=== PATIENT | male | born 1960 | race African-American/Black ===

== ENCOUNTER 2021-05-19 11:13 | Inpatient (IN) ==
[2021-05-19] MEDS ORDERED: NS 1,000 ML IV 1,000 ML IV ONE (13:31)
--- NOTE | 2021-05-19 13:31 | DR.SOBA ---
HPI Time Seen Time Seen by Provider: 05/19/21 13:29 Primary Care Physician Primary Care Physician: MILLY GLOVER HPI Comment HPI Comment: PATIENT WITH A HISTORY OF PANCREATIC CARCINOMA, POST WHIPPLE PROCEDURE, COMPLAINS OF DYSPNEA WORSE UPON EXERTION ASSOCIATED WITH A DRY COUGH. HAS LEFT POSTERIOR BACK PAIN. DENIES FEVER AND CHILLS. Complaints Chief Complaint Doctors Comments: DYSPNEA AND COUGH X 3 DAYS Chief Complaint:: PT TO ER WITH C/O SOB, AND < BACK ,BR PT DENIES CCC, FEVER ,,BR COVID-19 Coronavirus risk:travel/contact w/high risk person: Yes Has patient experienced Coronavirus symptoms: Yes Reviewed Nurses Notes Reviewed: Yes Source History Provided: Patient Mode of Arrival Mode of Arrival: Wheelchair Timing Onset of Chief Complaint: 05/16/21 PMH PMH Past Medical History: Yes Past Medical History: Diabetes Past Medical History Comment: PACREATIC CANCER 5 YEARS AGO Past Surgical History: Yes Past Surgical History Comment: KNEE SURGERY Family History History of Family Medical Conditions: No Social History Does patient currently use any type of tobacco product: No Have you used tobacco products in the last 12 months: No Does any household member use tobacco: No Alcohol Use: None Do you use any recreational Drugs:: No Lives With: Family Lives Where: Home Travel Risk Coronavirus risk:travel/contact w/high risk person: No Has patient experienced Coronavirus symptoms: No Infectious screening In the last 2 months have you had wt loss of >10#?: NO Have you had fever, night sweats or hemotysis?: No Have you traveled outside the country in the last 6 months?: No Isolation: Standard ROS Review of Systems Constitutional: See HPI, Chills, Fever and Malaise Eyes: No Symptoms Reported ENTM: No Symptoms Reported Respiratoy: See HPI Cardiovascular: No Symptoms Reported Gastrointestinal/Abdominal: No Symptoms Reported Genitourinary: No Symptoms Reported Neurological: No Symptoms Reported Musculoskeletal: No Symptoms Reported Integumentary: No Symptoms Reported Hematologic/Lymphatic: No Symptoms Reported Endocrine: No Symptoms Reported Psychiatric: No Symptoms Reported All Other Systems: Reviewed and Negative PE Vital Signs Vitals: Temperature 97.2 F Pulse Rate 128 Respiratory Rate 20 Blood Pressure 128/52 O2 Sat by Pulse Oximetry 98 General Limitations: No Limitations General Appearance: Alert, In No Apparent Distress and Appears Intoxicated Eyes Eye exam: Normal Appearance ENT ENT Exam: Normal Exam and Normal Oropharynx Neck Neck Exam: Normal Inspection, Full ROM and Trachea Midline Respiratory Respiratory Exam: Left: Decreased Breath Sounds (1/3 [address] UP POSTERIORLY) Cardiovascular Cardiovascular Exam: Tachycardia Abdominal Exam Abdominal Exam: Normal Inspection, Normal Bowel Sounds and Soft Extremities Extremities Exam: Normal Inspection and Full ROM Neurologic Neurological Exam: Alert and Oriented X3 MDM Differential Diagnosis Differential Diagnosis: Pneumonia, Respiratory Insufficiency and Other Differential Diagnosis Comment:: PNEUMONIA, COVID COURSE Treatment Treatment: IV NORMAL SALINE 500ML/HR, AFTER BLOOD CULTURES OBTAINED LEVAQUIN 500MG IVPB, SOLUMEDROL 125MG IV, LOVENOX 60MG SUBQ Consultation Call Returned: 16:50 Consultation Comments: DISCUSSED WITH DR LICONA FOR OBSERVATION ROR Labs Reviewed Laboratory Results Reviewed?: Yes Result Diagrams: 05/19/21 14:28 05/19/21 14:28 Laboratory: WBC 15.0 X10^3/uL (3.6-10.0) H 05/19/21 14:28 RBC 3.40 X10^6/uL (4.7-6.0) L 05/19/21 14:28 Hgb 10.0 g/dL (13.5-18.0) L 05/19/21 14:28 Hct 30.2 % (42.0-54.0) L 05/19/21 14:28 MCV 88.8 fL (80.0-100.0) 05/19/21 14:28 MCH 29.3 pg (27.0-34.0) 05/19/21 14:28 MCHC 33.0 g/dL (33.0-35.0) 05/19/21 14:28 RDW 15.4 % (11.6-16.5) 05/19/21 14:28 Plt Count 328 X10^3/uL (150.0-450.0) 05/19/21 14:28 Plt Count Comment Adequate (ADEQUATE) 05/19/21 14:28 MPV 7.2 fL (7.4-11.0) L 05/19/21 14:28 Neut % (Auto) 91.0 % (42.0-75.0) H 05/19/21 14:28 Lymph % (Auto) 6.4 % (21.0-51.0) L 05/19/21 14:28 Menard % (Auto) 2.1 % (0.0-13.0) 05/19/21 14: Eos % (Auto) 0.3 % (0.9-2.9) L 05/19/21 14: Baso % (Auto) 0.2 % (0.2-1.0) 05/19/21 14: Neut # (Auto) 13.7 x10^3/uL (2.2-4.8) H 05/19/21 14: Lymph # (Auto) 1.0 X10^3/uL (1.3-2.9) L 05/19/21 14: Menard # (Auto) 0.3 x10^3/uL (0.3-0.8) 05/19/21 14: Eos # (Auto) 0.0 x10^3/uL (0.0-0.2) 05/19/21 14: Baso # (Auto) 0.0 X10^3/uL (0.0-0.1) 05/19/21 14: Absolute Nucleated RBC 0.1 /100WBC 05/19/21 14: Total Counted 100 05/19/21 14: Neutrophils % (Manual) 87 % (39-76) H 05/19/21 14: Band Neutrophils % 4 % (0-10) 05/19/21 14: Lymphocytes % (Manual) 5 % (13-43) L 05/19/21 14: Monocytes % (Manual) 4 % (4-9) 05/19/21 14:28 Plt Morphology Comment Normal (NORMAL) 05/19/21 14: RBC Morphology Abnormal (NORMAL) 05/19/21 14:28 Target Cells Slight A 05/19/21 14:28 Tear Drop Cells Slight 05/19/21 14:28 [place] Cells Slight A 05/19/21 14:28 PT 17.2 SECONDS (11.8-14.3) 05/19/21 14: INR Target Range - 05/19/21 14: INR 1.48 (0.8-1.3) H 05/19/21 14:28 D-Dimer > 20.00 ug/ml (0.0-0.57) H* 05/19/21 14:28 Sample Site Rr 05/19/21 13:55 ABG pH 7.480 (7.35-7.45) H 05/19/21 13:55 ABG pCO2 23.0 mmHg (35.0-45.0) L 05/19/21 13:55 ABG pO2 91.0 mmHg (80.0-100.0) 05/19/21 13:55 ABG HCO3 17.1 mmol/L (22-26) L* 05/19/21 13:55 ABG O2 Saturation 98.0 % (90-100) 05/19/21 13:55 ABG Base Excess -4.7 mmol/L (-2.0-2.0) L 05/19/21 13:55 Pipo Test Pos 05/19/21 13:55 A-a Gradient 30.0 mmHg 05/19/21 13:55 FiO2 21.0 05/19/21 13:55 Blood Gas Comments Cheo well cb 05/19/21 13:55 Sodium 136 mmol/L (136-145) 05/19/21 14:28 Corrected Sodium TNP 05/19/21 14:28 Potassium 4.4 mmol/L (3.5-5.1) 05/19/21 14:28 Chloride 101 mmol/L (98-107) 05/19/21 14:28 Carbon Dioxide 20.6 mmol/L (21-32) L 05/19/21 14:28 BUN 60 mg/dL (7-18) H 05/19/21 14:28 Creatinine 1.63 mg/dL (0.70-1.30) H 05/19/21 14:28 Est GFR (MDRD) Af Amer 56 (>60) L 05/19/21 14:28 Est GFR (MDRD) Non-Af 46 (>60) L 05/19/21 14:28 Glucose 88 mg/dL (65-99) 05/19/21 14:28 Lactic Acid 4.4 mmol/L (0.4-2.0) H 05/19/21 14:28 Calcium 8.5 mg/dL (8.5-10.1) 05/19/21 14:28 Corrected Calcium 10.1 mg/dL (8.5-10.1) 05/19/21 14:28 Total Bilirubin 0.80 mg/dL (0.2-1.0) 05/19/21 14:28 AST 25 Units/L (15-37) 05/19/21 14:28 ALT 9 Units/L (12-78) L 05/19/21 14:28 Alkaline Phosphatase 271 Units/L (46-116) H 05/19/21 14:28 Troponin I High Sens 21.3 ng/L (4.0-60.0) 05/19/21 14:28 Total Protein 7.8 g/dL (6.4-8.2) 05/19/21 14:28 Albumin 2.0 g/dL (3.4-5.0) L 05/19/21 14:28 Globulin 5.8 g/dL (2.5-4.5) H 05/19/21 14:28 Albumin/Globulin Ratio 0.3 Ratio (1.1-2.1) L 05/19/21 14:28 SARS CoV-2 RNA Rapid BIJAN Negative (NEGATIVE) 05/19/21 14:30 XRAY X-ray Results: CHEST XRAY- PATCHY LOBAR INFILTRATES EKG Rate: 124 Rhythm: NSR ST: Nonsp Opioid Opioid Risk Tool Age (Erickson box if 16-45): No History of Preadolescent Sexual Abuse: No Total: 0 Total Score Risk Category: Low Risk Copyright: Tomi WELLINGTON predicting aberrant behaviors Diagnosis Discharge Problem: Pneumonia, Acute dyspnea
[2021-05-19] MEDS ORDERED: LEVAQUIN PREMIX IV 500 MG 500 MG/100 ML BAG IV ONE (13:38)
[2021-05-19] MEDS ORDERED: NS 500 ML IV 500 ML IV ONE (13:38)
[2021-05-19 14:00] LABS: ABG ALLEN TEST POS; ABG BASE EXCESS -4.7 mmol/L (-2.0-2.0); ABG HCO3 17.1 mmol/L (22-26)
[2021-05-19 14:40] LABS: BASOPHILS % (AUTO) 0.2 % (0.2-1.0); EOSINOPHILS % (AUTO) 0.3 % (0.9-2.9); HEMATOCRIT 30.2 % (42.0-54.0); LYMPHOCYTES % (AUTO) 6.4 % (21.0-51.0); MEAN CORPUSCULAR HEMOGLOBIN 29.3 pg (27.0-34.0); MEAN CORPUSCULAR VOLUME 88.8 fL (80.0-100.0); MEAN PLATELET VOLUME 7.2 fL (7.4-11.0); MONOCYTES # (AUTO) 0.3 x10^3/uL (0.3-0.8); MONOCYTES % (AUTO) 2.1 % (0.0-13.0); NEUTROPHILS # (AUTO) 13.7 x10^3/uL (2.2-4.8); RED CELL DISTRIBUTION WIDTH 15.4 % (11.6-16.5)
[2021-05-19] MEDS: LEVAQUIN PREMIX IV 500 MG 500 MG/100 ML BAG IV SCH (14:47)
[2021-05-19 14:58] LABS: LACTIC ACID 4.4 mmol/L (0.4-2.0)
[2021-05-19 15:02] LABS: ALANINE AMINOTRANSFERASE 9 Units/L (12-78); ALKALINE PHOSPHATASE 271 Units/L (46-116); ASPARTATE AMINO TRANSFERASE 25 Units/L (15-37); BLOOD UREA NITROGEN 60 mg/dL (7-18); CALCIUM 8.5 mg/dL (8.5-10.1); CARBON DIOXIDE 20.6 mmol/L (21-32); CHLORIDE 101 mmol/L (98-107); COR CA(FOR HYPOALB) 10.1 mg/dL (8.5-10.1); CREATININE 1.63 mg/dL (0.70-1.30); SODIUM 136 mmol/L (136-145); TOTAL PROTEIN 7.8 g/dL (6.4-8.2); eGFR NON BLACK RACES 46 (>60)
[2021-05-19] MEDS ORDERED: SOLU-Medrol 125 MG VIAL IVP ONE (15:06)
--- NOTE | 2021-05-19 15:51 | RAD ---
HISTORYSOB, COUGH ORTHO, HX PACREATIC CASTUDYCHEST, 1 VIEWCOMPARISONNone available.FINDINGSThe trachea is midline. Shallow respiration extensor weights the cardiac size. There is patchy multi lobar pulmonary opacities with some sparing in the apices. The appearance is worrisome for infection, possibly viral pneumonia. There is gaseous distention of the stomach suggesting difficulty breathing with air swallowing. The differential would include gastric ileus. The bony thorax is unremarkable.IMPRESSIONPatchy multi lobar pulmonary infiltrates worrisome for infection, possibly viral pneumonia. 2. Nonspecific gas is distension of the stomach. Question air swallowing from dyspnea versus gastric ileus..Electronically signed by: Dionte Clancy (May 19, 2021 15:50:17)
[2021-05-19 16:16] LABS: BAND NEUTROPHILS % 4 % (0-10); BURR CELLS SLIGHT; PLATELET MORPHOLOGY COMMENT NORMAL (NORMAL); TARGET CELLS SLIGHT; TEAR DROP CELLS SLIGHT
[2021-05-19] MEDS ORDERED: SOLU-Medrol 125 MG VIAL ONE (17:28)
[2021-05-19] MEDS ORDERED: LOVENOX INJ 60 MG SYR SC ONE ×2 (17:47→19:13)
[2021-05-19] MEDS ORDERED: SNACK - Diabetic Appropriate PO SCH (22:04)
[2021-05-19] MEDS ORDERED: TYLENOL 325 MG TAB PO PRN (22:04)
[2021-05-19] MEDS: PULMICORT NEB TX 0.5 MG NEB SCH (22:20)
[2021-05-19] MEDS: BROVANA IN SCH (22:20)
[2021-05-19 22:43] VITALS: BMI 28.2
[2021-05-20] MEDS ORDERED: NS 1,000 ML IV 1,000 ML IV ONE ×2 (02:25→19:47)
[2021-05-20] MEDS ORDERED: LOPRESSOR INJ 5 MG AMP IVP PRN (02:25)
[2021-05-20] MEDS ORDERED: NS 500 ML IV 500 ML IV ONE ×2 (02:30→02:39)
[2021-05-20] MEDS: NS 1,000 ML IV 1,000 ML IV SCH ×3 (03:40→15:43)
[2021-05-20 06:10] LABS: BASOPHILS % (AUTO) 0.1 % (0.2-1.0); HEMATOCRIT 24.6 % (42.0-54.0); HEMOGLOBIN 8.2 g/dL (13.5-18.0); LYMPHOCYTES # (AUTO) 0.8 X10^3/uL (1.3-2.9); LYMPHOCYTES % (AUTO) 6.2 % (21.0-51.0); MEAN CORPUSCULAR HEMOGLOBIN 29.2 pg (27.0-34.0); MEAN CORPUSCULAR HGB CONC 33.2 g/dL (33.0-35.0); MEAN CORPUSCULAR VOLUME 87.9 fL (80.0-100.0); MEAN PLATELET VOLUME 7.2 fL (7.4-11.0); MONOCYTES # (AUTO) 0.2 x10^3/uL (0.3-0.8); MONOCYTES % (AUTO) 1.9 % (0.0-13.0); NEUTROPHILS # (AUTO) 11.6 x10^3/uL (2.2-4.8); NEUTROPHILS % (AUTO) 91.8 % (42.0-75.0); RED CELL DISTRIBUTION WIDTH 15.4 % (11.6-16.5); WHITE BLOOD COUNT 12.6 X10^3/uL (3.6-10.0)
[2021-05-20 06:36] LABS: ALBUMIN 1.6 g/dL (3.4-5.0); CALCIUM 7.9 mg/dL (8.5-10.1); CARBON DIOXIDE 15.8 mmol/L (21-32); COR CA(FOR HYPOALB) 9.8 mg/dL (8.5-10.1); CREATININE 1.55 mg/dL (0.70-1.30); TOTAL PROTEIN 6.7 g/dL (6.4-8.2)
[2021-05-20 07:34] LABS: BAND NEUTROPHILS % 2 % (0-10); PLATELET MORPHOLOGY COMMENT NORMAL (NORMAL)
[2021-05-20 07:35] LABS: BURR CELLS SLIGHT; TARGET CELLS SLIGHT; TEAR DROP CELLS SLIGHT
[2021-05-20] MEDS: PULMICORT NEB TX 0.5 MG NEB SCH ×2 (08:00→20:15)
[2021-05-20] MEDS: BROVANA IN SCH ×2 (08:00→20:15)
[2021-05-20] MEDS: LEVAQUIN PREMIX IV 500 MG 500 MG/100 ML BAG IV SCH (08:44)
[2021-05-20] MEDS: GLUCOPHAGE XR 24-HR PO SCH (08:45)
[2021-05-20] MEDS: GLUCOTROL PO SCH (08:45)
[2021-05-20] MEDS: COZAAR PO SCH (08:45)
[2021-05-20] MEDS ORDERED: LOVENOX INJ 60 MG SYR SC SCH (09:00)
[2021-05-20] MEDS ORDERED: LEVAQUIN PREMIX IV 500 MG 500 MG/100 ML BAG IV SCH (09:00)
[2021-05-20] MEDS ORDERED: NovoLIN R (or HumuLIN R) SUBCUT PRN (11:09)
[2021-05-20] MEDS: ZITHROMAX INJ 500 MG VIAL 500 MG in NS 250 ML IV 250 ML IV SCH (12:21)
--- NOTE | 2021-05-20 13:23 | VAS ---
HISTORYBilateral lower extremity swelling.STUDYLOWER EXT VENOUS, BILATERALCOMPARISONNone.TECHNIQUEMultipl e mckeon scale and color flow Doppler images of the deep venous system were obtained of the right and left lower extremity.FINDINGSThe deep venous system of the right and left lower extremities were evaluated from the level of the common femoral vein through the popliteal vein. There is echogenic material filling the lumen of the noncompressible superficial femoral vein and popliteal vein of the deep venous system on the right without vascular flow in these vessels on Doppler interrogation compatible with occluding DVT. Similar findings are present within the incompletely compressible popliteal vein on the left compatible with partially occluding thrombus of the left popliteal vein.IMPRESSION1. Occluding DVT of the right lower extremity.2. Partially occluding DVT of the left lower extremity.Electronically signed by: MARK CHIU (May 20, 2021 13:22:54)
[2021-05-20] MEDS: ZOFRAN INJ 4 MG VIAL IVP PRN (17:35)
[2021-05-20] MEDS: HEPARIN SODIUM IN D5W 25,000 UNITS/500 ML BAG IV PRN (20:24)
[2021-05-20] MEDS: SNACK - Diabetic Appropriate PO SCH (20:46)
--- NOTE | 2021-05-21 00:59 | DR.H&P ---
H&P - History & Physical for Day of: H&P Date: 05/19/21 - Chief Complaint Chief Complaint: dyspnea - History of Present Illness History of Present Illness: Patient is a 61 year old male who was admitted due to blateral pneumonia, COVID negative. Patient reprots SOB which progressively became worse. Patient reports mild fever and chills. Patient has a PMH of pancreatic cancer and underwent the whipple procedure approximately 5 years ago. Report he has been in remission since. Also has a history of polio affecting left lower ext. PMH pancreatic cancer, polio, DM - Past Medical History Past Medical History: Diabetes Additional Medical History: pancreatic cancer, polio, whipple procedure - Past Surgical History Surgical History: Abdominal Surgery (whipple procedure) - Family History Family Medical History: Diabetes Mellitus, Cancer, Hypertension - Social History Does patient currently use any type of tobacco product: No Have you used tobacco products in the last 12 months: No Does any household member use tobacco: No Alcohol Use: None Drug Use: None - Medications Home Medications: No Known Drug Allergies Allergy (Verified 05/19/21 11:19) CONTINUE taking the following medications azithromycin 500 mg PO DAILY 05/19/21 [History] glipizide 5 mg PO DAILY 05/19/21 [History] losartan 50 mg PO DAILY 05/19/21 [History] metformin 500 mg PO DAILY 05/19/21 [History] - Review of Systems Constitutional: See HPI Eyes: See HPI ENT: See HPI Respiratory: See HPI Cardiovascular: See HPI Gastrointestinal: See HPI Genitourinary: See HPI Musculoskeletal: See HPI Skin: See HPI Neurological: See HPI - Physical Exam Vital Signs: Temperature 98.3 F Pulse Rate [Left Brachial] 126 Pulse Rate [Bilateral Radial] 111 Pulse Rate 122 Respiratory Rate 20 Blood Pressure [Left Arm] 111/70 Blood Pressure [Right Arm] 106/69 Blood Pressure 111/62 O2 Sat by Pulse Oximetry 97 Oriented: Normal, Time, Person, Place Eyes: Normal Ear: Normal Nose: Normal Throat: Normal Respiratory: Rhonchi Throughout Cardiovascular: Tachycardia : Normal Auscultation: Bowel Sounds: Normal Palpation: Normal Tenderness: Normal Skin: Normal Musculoskeletal: Left, Leg, Motor Deficit, Instability (Left lower ext weaker jordon right and contracted due to history of polio) Psychiatric: Normal Mood Description: Calm Affect: Normal Speech Pattern: Clear, Appropriate - Assessment/Plan (1) Pneumonia Status: Acute Plan: IV abx, steroids. Trend ABG, CXR, and labs (2) Acute dyspnea Status: Acute (3) Elevated d-dimer Status: Acute Plan: Unable to perform CTA due to renal function, VQ scan pending (4) History of poliomyelitis Status: Chronic (5) History of pancreatic cancer Status: Chronic (6) Diabetes Status: Chronic (7) ADE (acute kidney injury) Status: Acute Plan: fluids. trend - Allergies Allergies/Adverse Reactions: Allergies Allergy/AdvReac Type Severity Reaction Status Date / Time No Known Drug Allergies Allergy Verified 05/19/21 11:19
--- NOTE | 2021-05-21 01:13 | PCM.PROG ---
Progress Note - Progress Note for Day of Date of Exam: 05/20/21 - Subjective Subjective: Patient reports improvement in symptoms. NM lung scan pending. US bilateral lower ext positive for bilateral lower ext DVT; Heparing started. No other concerns at present. - Past Medical Family Social History Past Med/Fam/Surg Hx: No changes since H&P Allergies: Allergies No Known Drug Allergies Allergy (Verified 05/19/21 11:19) - Review of Systems ROS: No change since H&P - Vital Signs and I&O's Vital Signs: Temperature 98.3 F Pulse Rate [Left Brachial] 126 Pulse Rate [Bilateral Radial] 111 Pulse Rate 122 Respiratory Rate 20 Blood Pressure [Left Arm] 111/70 Blood Pressure [Right Arm] 106/69 Blood Pressure 111/62 O2 Sat by Pulse Oximetry 97 Intake and Output: Intake & Output 05/18/21 05/19/21 05/20/21 05/21/21 23:59 23:59 23:59 23:59 Intake Total 710 / 710 3237 / 3237 Output Total 650 / 650 Balance 710 / 710 2587 / 2587 - Physical Exam Oriented: Normal, Time, Person, Place Eyes: Normal Ear: Normal Nose: Normal Throat: Normal Respiratory: Generalized, Diminished, Rhonchi Cardiovascular: Tachycardia : Normal Auscultation: Bowel Sounds: Normal, Absent Tenderness: Normal Skin: Normal Musculoskeletal: Left, Leg, Motor Deficit, Instability (Left lower ext weaker jordon right and contracted due to history of polio) Psychiatric: Normal Mood Description: Calm Affect: Normal Speech Pattern: Clear, Appropriate - Laboratory and Diagnostics Result Diagrams: 05/20/21 05:45 05/20/21 05:45 Labs: Laboratory WBC 12.6 X10^3/uL (3.6-10.0) H 05/20/21 05:45 RBC 2.80 X10^6/uL (4.7-6.0) L 05/20/21 05:45 Hgb 8.2 g/dL (13.5-18.0) L 05/20/21 05:45 Hct 24.6 % (42.0-54.0) L 05/20/21 05:45 MCV 87.9 fL (80.0-100.0) 05/20/21 05:45 MCH 29.2 pg (27.0-34.0) 05/20/21 05:45 MCHC 33.2 g/dL (33.0-35.0) 05/20/21 05:45 RDW 15.4 % (11.6-16.5) 05/20/21 05:45 Plt Count 274 X10^3/uL (150.0-450.0) 05/20/21 05:45 Plt Count Comment Adequate (ADEQUATE) 05/20/21 05:45 MPV 7.2 fL (7.4-11.0) L 05/20/21 05:45 Neut % (Auto) 91.8 % (42.0-75.0) H 05/20/21 05:45 Lymph % (Auto) 6.2 % (21.0-51.0) L 05/20/21 05:45 [place] % (Auto) 1.9 % (0.0-13.0) 05/20/21 05:45 Eos % (Auto) 0.0 % (0.9-2.9) L 05/20/21 05:45 Baso % (Auto) 0.1 % (0.2-1.0) L 05/20/21 05:45 Neut # (Auto) 11.6 x10^3/uL (2.2-4.8) H 05/20/21 05:45 Lymph # (Auto) 0.8 X10^3/uL (1.3-2.9) L 05/20/21 05:45 [place] # (Auto) 0.2 x10^3/uL (0.3-0.8) L 05/20/21 05:45 Eos # (Auto) 0.0 x10^3/uL (0.0-0.2) 05/20/21 05:45 Baso # (Auto) 0.0 X10^3/uL (0.0-0.1) 05/20/21 05:45 Absolute Nucleated RBC 0.0 /100WBC 05/20/21 05:45 Total Counted 100 05/20/21 05:45 Neutrophils % (Manual) 92 % (39-76) H 05/20/21 05:45 Band Neutrophils % 2 % (0-10) 05/20/21 05:45 Lymphocytes % (Manual) 5 % (13-43) L 05/20/21 05:45 Monocytes % (Manual) 1 % (4-9) L 05/20/21 05:45 Plt Morphology Comment Normal (NORMAL) 05/20/21 05:45 RBC Morphology Abnormal (NORMAL) 05/20/21 05:45 Target Cells Slight A 05/20/21 05:45 Tear Drop Cells Slight 05/20/21 05:45 Josué Cells Slight A 05/20/21 05:45 PT 16.9 SECONDS (11.8-14.3) 05/20/21 20:17 INR Target Range - 05/20/21 20:17 INR 1.45 (0.8-1.3) H 05/20/21 20:17 APTT 56.2 SECONDS (22.9-36.5) H 05/20/21 20:17 PTT Comment - 05/20/21 20:17 D-Dimer > 20.00 ug/ml (0.0-0.57) H* 05/19/21 14:28 Sample Site Rr 05/19/21 13:55 ABG pH 7.480 (7.35-7.45) H 05/19/21 13:55 ABG pCO2 23.0 mmHg (35.0-45.0) L 05/19/21 13:55 ABG pO2 91.0 mmHg (80.0-100.0) 05/19/21 13:55 ABG HCO3 17.1 mmol/L (22-26) L* 05/19/21 13:55 ABG O2 Saturation 98.0 % (90-100) 05/19/21 13:55 ABG Base Excess -4.7 mmol/L (-2.0-2.0) L 05/19/21 13:55 Pipo Test Pos 05/19/21 13:55 A-a Gradient 30.0 mmHg 05/19/21 13:55 FiO2 21.0 05/19/21 13:55 Blood Gas Comments Cheo well cb 05/19/21 13:55 Sodium 135 mmol/L (136-145) L 05/20/21 05:45 Corrected Sodium 137 mmol/L (136-145) 05/20/21 05:45 Potassium 5.4 mmol/L (3.5-5.1) H 05/20/21 05:45 Chloride 102 mmol/L (98-107) 05/20/21 05:45 Carbon Dioxide 15.8 mmol/L (21-32) L 05/20/21 05:45 BUN 72 mg/dL (7-18) H 05/20/21 05:45 Creatinine 1.55 mg/dL (0.70-1.30) H 05/20/21 05:45 Est GFR (MDRD) Af Amer 59 (>60) 05/20/21 05:45 Est GFR (MDRD) Non-Af 49 (>60) L 05/20/21 05:45 Glucose 196 mg/dL (65-99) H 05/20/21 05:45 POC Glucose (mg/dL) 124 mg/dL (65-99) H 05/20/21 20:37 Lactic Acid 2.2 mmol/L (0.4-2.0) H 05/20/21 05:45 Calcium 7.9 mg/dL (8.5-10.1) L 05/20/21 05:45 Corrected Calcium 9.8 mg/dL (8.5-10.1) 05/20/21 05:45 Total Bilirubin 0.70 mg/dL (0.2-1.0) 05/20/21 05:45 AST 20 Units/L (15-37) 05/20/21 05:45 ALT 7 Units/L (12-78) L 05/20/21 05:45 Alkaline Phosphatase 228 Units/L (46-116) H 05/20/21 05:45 Troponin I High Sens 18.3 ng/L (4.0-60.0) 05/19/21 20:00 Total Protein 6.7 g/dL (6.4-8.2) 05/20/21 05:45 Albumin 1.6 g/dL (3.4-5.0) L 05/20/21 05:45 Globulin 5.1 g/dL (2.5-4.5) H 05/20/21 05:45 Albumin/Globulin Ratio 0.3 Ratio (1.1-2.1) L 05/20/21 05:45 SARS CoV-2 RNA Rapid BIJAN Negative (NEGATIVE) 05/19/21 14:30 - Plan (1) DVT of lower extremity, bilateral Status: Acute Plan: Heparin drip (2) Pneumonia Status: Acute Plan: IV abx, steroids. Trend ABG, CXR, and labs (3) Acute dyspnea Status: Acute (4) Elevated d-dimer Status: Acute Plan: Unable to perform CTA due to renal function, VQ scan pending (5) History of poliomyelitis Status: Chronic (6) History of pancreatic cancer Status: Chronic (7) Diabetes Status: Chronic (8) ADE (acute kidney injury) Status: Acute Plan: fluids. trend
[2021-05-21 03:03] LABS: HEMOGLOBIN 7.8 g/dL (13.5-18.0); LYMPHOCYTES # (AUTO) 0.8 X10^3/uL (1.3-2.9); MONOCYTES # (AUTO) 0.6 x10^3/uL (0.3-0.8); MONOCYTES % (AUTO) 4.4 % (0.0-13.0)
[2021-05-21 03:09] LABS: BASOPHILS % (AUTO) 0.2 % (0.2-1.0); HEMATOCRIT 23.6 % (42.0-54.0); LYMPHOCYTES % (AUTO) 6.5 % (21.0-51.0); MEAN CORPUSCULAR HGB CONC 33.1 g/dL (33.0-35.0); MEAN CORPUSCULAR VOLUME 87.8 fL (80.0-100.0); MEAN PLATELET VOLUME 6.9 fL (7.4-11.0); NEUTROPHILS # (AUTO) 11.7 x10^3/uL (2.2-4.8); NEUTROPHILS % (AUTO) 88.9 % (42.0-75.0); RED BLOOD COUNT 2.69 X10^6/uL (4.7-6.0); RED CELL DISTRIBUTION WIDTH 15.6 % (11.6-16.5); WHITE BLOOD COUNT 13.1 X10^3/uL (3.6-10.0)
[2021-05-21 03:13] LABS: ALANINE AMINOTRANSFERASE 10 Units/L (12-78); ALBUMIN 1.6 g/dL (3.4-5.0); ALKALINE PHOSPHATASE 210 Units/L (46-116); ASPARTATE AMINO TRANSFERASE 23 Units/L (15-37); BLOOD UREA NITROGEN 67 mg/dL (7-18); CALCIUM 8.1 mg/dL (8.5-10.1); CARBON DIOXIDE 17.5 mmol/L (21-32); CHLORIDE 107 mmol/L (98-107); COR NA(FOR HYPERGLY) 138 mmol/L (136-145); CREATININE 1.32 mg/dL (0.70-1.30); SODIUM 136 mmol/L (136-145); TOTAL PROTEIN 6.4 g/dL (6.4-8.2); eGFR NON BLACK RACES 59 (>60)
[2021-05-21 04:23] LABS: PLATELET MORPHOLOGY COMMENT NORMAL (NORMAL)
[2021-05-21 04:35] LABS: ABG BASE EXCESS -5.8 mmol/L (-2.0-2.0)
[2021-05-21 04:36] LABS: ABG ALLEN TEST POS
[2021-05-21] MEDS: NS 1,000 ML IV 1,000 ML IV SCH ×5 (05:52→21:10)
--- NOTE | 2021-05-21 08:02 | RAD ---
HISTORYSOB, DVT LOWER EXTREMITIESSTUDYCHEST, 1 [id number] view of the chestFINDINGSCardiac silhouette is stably enlarged. No significant change in lower lung predominant airspace opacities. Elevated left hemidiaphragm is stable. Gas-filled stomach versus colon under the left hemidiaphragm is stable. No discernible pleural effusion or pneumothorax.IMPRESSIONNo significant change in bilateral airspace opacities suspicious for pneumonia. Other findings are also similar.Electronically signed by: Ross Shannon (May 21, 2021 08:01:26)
[2021-05-21] MEDS: COZAAR PO SCH (08:13)
[2021-05-21] MEDS: ZITHROMAX INJ 500 MG VIAL 500 MG in NS 250 ML IV 250 ML IV SCH (08:13)
[2021-05-21] MEDS: GLUCOTROL PO SCH (08:13)
[2021-05-21] MEDS: GLUCOPHAGE XR 24-HR PO SCH (08:14)
[2021-05-21] MEDS: LEVAQUIN PREMIX IV 500 MG 500 MG/100 ML BAG IV SCH (08:14)
[2021-05-21] MEDS: PULMICORT NEB TX 0.5 MG NEB SCH ×2 (08:46→20:30)
[2021-05-21] MEDS: BROVANA IN SCH ×2 (08:46→20:30)
[2021-05-21] MEDS: CARDIZEM CD 240 MG 24-HR PO SCH (09:24)
[2021-05-21] MEDS: TOPROL XL PO SCH (09:24)
[2021-05-21] MEDS: ZOFRAN INJ 4 MG VIAL IVP PRN (12:00)
--- NOTE | 2021-05-21 15:16 | RAD ---
HISTORYPAIN IN LOWER BACKSTUDYLUMBAR SPIN x-ray E, AP/LATCOMPARISONNoneFINDINGSNo scoliosis is seen. Large lateral osteophytes are seen in the lower thoracic and upper lumbar spine. Hypertrophic arthritic facet changes are seen in the lower lumbar spine. No compression fracture or spondylolisthesis is seen. No disc space narrowing is seen. Prominent air-filled structure is seen overlying the midline of the abdomen. This could be dilated sigmoid colon or transverse colon. Consider possible ileus.IMPRESSIONProminent hypertrophic arthritic facet changes are seen in the lower lumbar spine.Possible ileus. Recommend two view abdomen x-ray series.Electronically signed by: Danny Chen (May 21, 2021 15:16:10)
--- NOTE | 2021-05-21 15:19 | RAD ---
HISTORYPAIN IN BACKSTUDYTHORACIC SPINE x-ray two viewsCOMPARISONNoneFINDINGSThoracic spine is difficult to visualize on lateral view due to large lateral osteophytes. No obvious compression fracture or subluxation is seen. No scoliosis is seen.IMPRESSIONLimit evaluation suggest prominent lateral osteophytes throughout the thoracic spine, greatest in the lower thoracic spine.Electronically signed by: Danny Chen (May 21, 2021 15:18:21)
--- NOTE | 2021-05-21 16:18 | CT ---
HISTORYBLOOD CLOTS, ELEVATED DDIMER, PNEUMONIASTUDYCTA CHESTCOMPARISONTECHNIQUEMultiple axial images of the chest were obtained from the thoracic inlet to the upper abdomen after the administration of IV contrast. 3D reconstructions utilizing axial MIPS imaging was performed and reviewed. Dose reduction techniques including Automated Exposure Control (AEC) and adjustment of mA and kV were utilized.FINDINGSThe thyroid gland is grossly normal. The heart size is normal. The right ventricle is not enlarged. There is atherosclerosis in the LAD. The main pulmonary trunk measures 3.0 centimeter in diameter. There is blood clot sitting at the bifurcation of the left main pulmonary artery and shortly downstream in the lobar arteries of the right lung. There are reactive sized mediastinal and hilar lymph nodes. The aorta is normal in size and appearance. There is a small pericardial effusion. Upper abdominal structures are grossly unremarkable. There is a small right and moderate left pleural effusion. There are patchy peripheral opacities bilaterally. There is cavitation in the left lower lobe which may be related to prior bronchiectasis or current cavitation related to infection. There is bronchial wall thickening most evident in the lower lobes. There is abnormal blastic disease in the vertebral bodies compatible with metastatic disease. There is a destructive lesion in the left 10th rib compatible with a metastasis..IMPRESSION1. There are bilateral pulmonary emboli causing pulmonary artery hypertension. 2. Patchy bilateral pulmonary infiltrates with some cavitation in the left lower lobe within an area of infiltrate. 3. Bronchial wall thickening most pronounced in the lower lobes. 4. Small right and moderate left pleural effusion. 5. Small pericardial effusion. 6. Metastatic disease to bone.Electronically signed by: Dionte Clancy (May 21, 2021 16:17:16)
[2021-05-21] MEDS: HEPARIN SODIUM IN D5W 25,000 UNITS/500 ML BAG IV PRN (18:50)
[2021-05-21] MEDS: SNACK - Diabetic Appropriate PO SCH (21:10)
[2021-05-21] MEDS: RESTORIL CAP 15 MG PO PRN (22:34)
--- NOTE | 2021-05-22 02:37 | PCM.PROG ---
Progress Note - Progress Note for Day of Date of Exam: 05/21/21 - Subjective Subjective: Patient reports improvement in symptoms. 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 This is a new finding for patient he is unaware of this finding (received results after talking with patient will update patient in am). US bilateral lower ext positive for bilateral lower ext DVT; Heparin drip. No other concerns at present. Patient does report low and mid back pain which is new over the past few weeks. Denies injury - Past Medical Family Social History Past Med/Fam/Surg Hx: No changes since H&P Allergies: Allergies No Known Drug Allergies Allergy (Verified 05/19/21 11:19) - Review of Systems ROS: No change since H&P - Vital Signs and I&O's Vital Signs: Temperature 97.7 F Pulse Rate [Left Brachial] 103 Pulse Rate [Bilateral Radial] 111 Pulse Rate 88 Respiratory Rate 20 Blood Pressure [Left Arm] 86/54 Blood Pressure [Right Arm] 106/69 Blood Pressure 111/62 O2 Sat by Pulse Oximetry 98 Intake and Output: Intake & Output 05/19/21 05/20/21 05/21/21 05/22/21 23:59 23:59 23:59 23:59 Intake Total 710 / 710 3237 / 3237 3558 / 3558 364 / 364 Output Total 650 / 650 260 / 260 550 / 550 Balance 710 / 710 2587 / 2587 3298 / 3298 -186 / -186 - Physical Exam Oriented: Normal, Time, Person, Place Eyes: Normal Ear: Normal Nose: Normal Throat: Normal Respiratory: Generalized, Diminished, Rhonchi Cardiovascular: Tachycardia : Normal Auscultation: Bowel Sounds: Normal, Absent Tenderness: Normal Skin: Normal Musculoskeletal: Left, Leg, Motor Deficit, Instability (Left lower ext weaker jordon right and contracted due to history of polio) Psychiatric: Normal Mood Description: Calm Affect: Normal Speech Pattern: Clear, Appropriate - Laboratory and Diagnostics Result Diagrams: 05/21/21 02:37 05/21/21 02:37 Labs: 05/19/21 14:28 Blood Blood Culture - Preliminary 05/19/21 14:20 Blood Blood Culture - Preliminary Laboratory WBC 13.1 X10^3/uL (3.6-10.0) H 05/21/21 02:37 RBC 2.69 X10^6/uL (4.7-6.0) L 05/21/21 02:37 Hgb 7.8 g/dL (13.5-18.0) L 05/21/21 02:37 Hct 23.6 % (42.0-54.0) L 05/21/21 02:37 MCV 87.8 fL (80.0-100.0) 05/21/21 02:37 MCH 29.0 pg (27.0-34.0) 05/21/21 02:37 MCHC 33.1 g/dL (33.0-35.0) 05/21/21 02:37 RDW 15.6 % (11.6-16.5) 05/21/21 02:37 Plt Count 356 X10^3/uL (150.0-450.0) 05/21/21 02:37 Plt Count Comment Adequate (ADEQUATE) 05/21/21 02:37 MPV 6.9 fL (7.4-11.0) L 05/21/21 02:37 Neut % (Auto) 88.9 % (42.0-75.0) H 05/21/21 02:37 Lymph % (Auto) 6.5 % (21.0-51.0) L 05/21/21 02:37 [place] % (Auto) 4.4 % (0.0-13.0) 05/21/21 02:37 Eos % (Auto) 0.0 % (0.9-2.9) L 05/21/21 02:37 Baso % (Auto) 0.2 % (0.2-1.0) 05/21/21 02:37 Neut # (Auto) 11.7 x10^3/uL (2.2-4.8) H 05/21/21 02:37 Lymph # (Auto) 0.8 X10^3/uL (1.3-2.9) L 05/21/21 02:37 [place] # (Auto) 0.6 x10^3/uL (0.3-0.8) 05/21/21 02:37 Eos # (Auto) 0.0 x10^3/uL (0.0-0.2) 05/21/21 02:37 Baso # (Auto) 0.0 X10^3/uL (0.0-0.1) 05/21/21 02:37 Absolute Nucleated RBC 0.0 /100WBC 05/21/21 02:37 Total Counted 100 05/21/21 02:37 Neutrophils % (Manual) 89 % (39-76) H 05/21/21 02:37 Band Neutrophils % 2 % (0-10) 05/20/21 05:45 Lymphocytes % (Manual) 6 % (13-43) L 05/21/21 02:37 Monocytes % (Manual) 5 % (4-9) 05/21/21 02:37 Plt Morphology Comment Normal (NORMAL) 05/21/21 02:37 RBC Morphology Normal (NORMAL) 05/21/21 02:37 Target Cells Slight A 05/20/21 05:45 Tear Drop Cells Slight 05/20/21 05:45 Josué Cells Slight A 05/20/21 05:45 PT 16.9 SECONDS (11.8-14.3) 05/20/21 20:17 INR Target Range - 05/20/21 20:17 INR 1.45 (0.8-1.3) H 05/20/21 20:17 APTT 74.6 SECONDS (22.9-36.5) H 05/21/21 22:59 PTT Comment - 05/21/21 22:59 D-Dimer > 20.00 ug/ml (0.0-0.57) H* 05/19/21 14:28 Sample Site Rr 05/21/21 04:30 ABG pH 7.470 (7.35-7.45) H 05/21/21 04:30 ABG pCO2 22.0 mmHg (35.0-45.0) L 05/21/21 04:30 ABG pO2 82.0 mmHg (80.0-100.0) 05/21/21 04:30 ABG HCO3 16.0 mmol/L (22-26) L* 05/21/21 04:30 ABG O2 Saturation 97.0 % (90-100) 05/21/21 04:30 ABG Base Excess -5.8 mmol/L (-2.0-2.0) L 05/21/21 04:30 Pipo Test Pos 05/21/21 04:30 A-a Gradient 40.0 mmHg 05/21/21 04:30 FiO2 21.0 05/21/21 04:30 Blood Gas Comments Cheo well ae 05/21/21 04:30 Sodium 136 mmol/L (136-145) 05/21/21 02:37 Corrected Sodium 138 mmol/L (136-145) 05/21/21 02:37 Potassium 4.9 mmol/L (3.5-5.1) 05/21/21 02:37 Chloride 107 mmol/L (98-107) 05/21/21 02:37 Carbon Dioxide 17.5 mmol/L (21-32) L 05/21/21 02:37 BUN 67 mg/dL (7-18) H 05/21/21 02:37 Creatinine 1.32 mg/dL (0.70-1.30) H 05/21/21 02:37 Est GFR (MDRD) Af Amer > 60 (>60) 05/21/21 02:37 Est GFR (MDRD) Non-Af 59 (>60) 05/21/21 02:37 Glucose 184 mg/dL (65-99) H 05/21/21 02:37 POC Glucose (mg/dL) 211 mg/dL (65-99) H 05/21/21 21:57 Lactic Acid 2.2 mmol/L (0.4-2.0) H 05/20/21 05:45 Calcium 8.1 mg/dL (8.5-10.1) L 05/21/21 02:37 Corrected Calcium 10.0 mg/dL (8.5-10.1) 05/21/21 02:37 Total Bilirubin 0.40 mg/dL (0.2-1.0) 05/21/21 02:37 AST 23 Units/L (15-37) 05/21/21 02:37 ALT 10 Units/L (12-78) L 05/21/21 02:37 Alkaline Phosphatase 210 Units/L (46-116) H 05/21/21 02:37 Troponin I High Sens 18.3 ng/L (4.0-60.0) 05/19/21 20:00 Total Protein 6.4 g/dL (6.4-8.2) 05/21/21 02:37 Albumin 1.6 g/dL (3.4-5.0) L 05/21/21 02:37 Globulin 4.8 g/dL (2.5-4.5) H 05/21/21 02:37 Albumin/Globulin Ratio 0.3 Ratio (1.1-2.1) L 05/21/21 02:37 SARS CoV-2 RNA Rapid BIJAN Negative (NEGATIVE) 05/19/21 14:30 - Plan (1) Pulmonary emboli Status: Acute Plan: Heparin drip (2) DVT of lower extremity, bilateral Status: Acute Plan: Heparin drip (3) Pneumonia Status: Acute Plan: IV abx, steroids. Trend ABG, CXR, and labs (4) Acute dyspnea Status: Acute (5) Elevated d-dimer Status: Acute Plan: Unable to perform CTA due to renal function, VQ scan pending (6) History of poliomyelitis Status: Chronic (7) History of pancreatic cancer Status: Chronic Plan: Likely metastatic (8) Diabetes Status: Chronic (9) ADE (acute kidney injury) Status: Acute Plan: fluids. trend
[2021-05-22] MEDS: NS 1,000 ML IV 1,000 ML IV SCH ×3 (04:22→12:43)
[2021-05-22 06:19] LABS: BASOPHILS % (AUTO) 0.1 % (0.2-1.0); EOSINOPHILS % (AUTO) 0.1 % (0.9-2.9); LYMPHOCYTES % (AUTO) 10.1 % (21.0-51.0); MEAN CORPUSCULAR HGB CONC 32.8 g/dL (33.0-35.0); MEAN CORPUSCULAR VOLUME 88.4 fL (80.0-100.0); MEAN PLATELET VOLUME 7.3 fL (7.4-11.0); MONOCYTES # (AUTO) 0.5 x10^3/uL (0.3-0.8); MONOCYTES % (AUTO) 4.7 % (0.0-13.0); NEUTROPHILS # (AUTO) 8.2 x10^3/uL (2.2-4.8); RED CELL DISTRIBUTION WIDTH 15.7 % (11.6-16.5); WHITE BLOOD COUNT 9.7 X10^3/uL (3.6-10.0)
[2021-05-22 06:24] LABS: HEMATOCRIT 18.5 % (42.0-54.0); HEMOGLOBIN 6.1 g/dL (13.5-18.0)
[2021-05-22 06:30] LABS: ALANINE AMINOTRANSFERASE 16 Units/L (12-78); ALBUMIN 1.6 g/dL (3.4-5.0); ALKALINE PHOSPHATASE 179 Units/L (46-116); ASPARTATE AMINO TRANSFERASE 28 Units/L (15-37); BLOOD UREA NITROGEN 50 mg/dL (7-18); CARBON DIOXIDE 17.6 mmol/L (21-32); CHLORIDE 109 mmol/L (98-107); COR CA(FOR HYPOALB) 9.9 mg/dL (8.5-10.1); COR NA(FOR HYPERGLY) 144 mmol/L (136-145); CREATININE 1.06 mg/dL (0.70-1.30); SODIUM 142 mmol/L (136-145); TOTAL PROTEIN 5.8 g/dL (6.4-8.2); eGFR NON BLACK RACES > 60 (>60)
[2021-05-22 07:42] LABS: BAND NEUTROPHILS % 4 % (0-10); METAMYELOCYTES % 6
[2021-05-22] MEDS: ZITHROMAX INJ 500 MG VIAL 500 MG in NS 250 ML IV 250 ML IV SCH (08:56)
[2021-05-22] MEDS: LEVAQUIN PREMIX IV 500 MG 500 MG/100 ML BAG IV SCH (08:57)
[2021-05-22] MEDS: GLUCOTROL PO SCH (08:58)
[2021-05-22] MEDS: CARDIZEM CD 240 MG 24-HR PO SCH (08:58)
[2021-05-22] MEDS: PROTONIX INJ 40 MG VIAL IVP SCH (08:58)
[2021-05-22] MEDS: GLUCOPHAGE XR 24-HR PO SCH (08:58)
[2021-05-22] MEDS: COZAAR PO SCH (08:58)
[2021-05-22] MEDS: TOPROL XL PO SCH (08:58)
[2021-05-22] MEDS: BROVANA IN SCH ×2 (09:25→20:40)
[2021-05-22] MEDS: PULMICORT NEB TX 0.5 MG NEB SCH ×2 (09:25→20:40)
[2021-05-22] MEDS: MORPHINE SULFATE INJ 2 MG INJ IVP PRN (10:25)
[2021-05-22 10:54] LABS: PLATELET MORPHOLOGY COMMENT NORMAL (NORMAL)
[2021-05-22] MEDS: HEPARIN SODIUM IN D5W 25,000 UNITS/500 ML BAG IV PRN (14:19)
[2021-05-22] MEDS ORDERED: K-DUR TAB 20 MEQ PO PRN (19:45)
[2021-05-22] MEDS ORDERED: POTASSIUM CHLORIDE LIQ 20 MEQ UDC PO PRN (19:45)
[2021-05-22] MEDS: SNACK - Diabetic Appropriate PO SCH (20:00)
[2021-05-22] MEDS: RESTORIL CAP 15 MG PO PRN (20:19)
[2021-05-22 20:50] LABS: HEMATOCRIT 17.3 % (42.0-54.0); HEMOGLOBIN 5.8 g/dL (13.5-18.0)
[2021-05-22] MEDS ORDERED: NS 500 ML IV 500 ML IV ONE (22:18)
[2021-05-23] MEDS: NS 1,000 ML IV 1,000 ML IV SCH ×4 (01:34→19:52)
[2021-05-23 02:32] LABS: BILIRUBIN,URINE NEGATIVE (NEGATIVE); BLOOD/HEMOGLOBIN,URINE NEGATIVE (NEGATIVE); GLUCOSE, URINE NEGATIVE (NEGATIVE); KETONES,URINE NEGATIVE (NEGATIVE); LEUKOCYTE ESTERASE ,URINE 1+ (NEGATIVE); NITRITES,URINE NEGATIVE (NEGATIVE); PROTEIN,URINE 2+ (NEGATIVE); UROBILINOGEN,URINE NORMAL (NORMAL)
[2021-05-23 02:38] LABS: APPEARANCE,URINE CLEAR (CLEAR); COLOR,URINE YELLOW (YELLOW)
[2021-05-23 02:43] LABS: BACTERIA,URINE TRACE /HPF (NEGATIVE); FINE GRANULAR CASTS,URINE FEW /LPF (NEGATIVE); HYALINE CASTS, URINE MODERATE /LPF (NEGATIVE); RBC,URINE NONE SEEN /HPF (0-3); SQUAMOUS EPITHELIAL CELL,UR RARE /HPF (NEGATIVE)
[2021-05-23] MEDS ORDERED: NS 500 ML IV 500 ML IV ONE (04:02)
[2021-05-23 04:28] LABS: BASOPHILS % (AUTO) 0.2 % (0.2-1.0); EOSINOPHILS % (AUTO) 0.1 % (0.9-2.9); HEMATOCRIT 21.7 % (42.0-54.0); LYMPHOCYTES # (AUTO) 0.9 X10^3/uL (1.3-2.9); LYMPHOCYTES % (AUTO) 6.1 % (21.0-51.0); MEAN CORPUSCULAR HEMOGLOBIN 28.7 pg (27.0-34.0); MEAN CORPUSCULAR HGB CONC 32.9 g/dL (33.0-35.0); MEAN CORPUSCULAR VOLUME 87.1 fL (80.0-100.0); MEAN PLATELET VOLUME 7.6 fL (7.4-11.0); MONOCYTES # (AUTO) 0.4 x10^3/uL (0.3-0.8); MONOCYTES % (AUTO) 2.9 % (0.0-13.0); NEUTROPHILS # (AUTO) 13.6 x10^3/uL (2.2-4.8); NEUTROPHILS % (AUTO) 90.7 % (42.0-75.0); RED BLOOD COUNT 2.49 X10^6/uL (4.7-6.0); RED CELL DISTRIBUTION WIDTH 14.9 % (11.6-16.5)
[2021-05-23 04:30] LABS: HEMOGLOBIN 7.2 g/dL (13.5-18.0)
[2021-05-23 04:31] LABS: ALANINE AMINOTRANSFERASE 17 Units/L (12-78); ALBUMIN 1.6 g/dL (3.4-5.0); ALKALINE PHOSPHATASE 230 Units/L (46-116); ASPARTATE AMINO TRANSFERASE 30 Units/L (15-37); BLOOD UREA NITROGEN 43 mg/dL (7-18); CALCIUM 7.8 mg/dL (8.5-10.1); CARBON DIOXIDE 18.4 mmol/L (21-32); CHLORIDE 111 mmol/L (98-107); COR CA(FOR HYPOALB) 9.7 mg/dL (8.5-10.1); COR NA(FOR HYPERGLY) 144 mmol/L (136-145); SODIUM 141 mmol/L (136-145); TOTAL PROTEIN 5.7 g/dL (6.4-8.2); eGFR NON BLACK RACES > 60 (>60)
[2021-05-23 04:46] LABS: BAND NEUTROPHILS % 3 % (0-10); HYPOCHROMASIA SLIGHT; METAMYELOCYTES % 2; PLATELET MORPHOLOGY COMMENT NORMAL (NORMAL); TARGET CELLS PRESENT
--- NOTE | 2021-05-23 07:57 | RAD ---
HISTORYAbdomen distentionSTUDYKUBCOMPARISONNone r.br.br quadrant. There is less severe gaseous dilatation of small and large bowel elsewhere. Surgical clips right upper quadrant. No mass formation or ascites noted.IMPRESSIONLeft upper quadrant gaseous dilatation possibly dilated stomach. Colon dilatation considered less likely. This may represent gastric atony or gastric outlet obstruction. Correlate clinically and suggest standard abdomen series including upright or decubitus views.Electronically signed by: CARLOS BAL (May 23, 2021 07:56:20)
[2021-05-23] MEDS: LEVAQUIN PREMIX IV 500 MG 500 MG/100 ML BAG IV SCH (09:03)
[2021-05-23] MEDS: ZITHROMAX INJ 500 MG VIAL 500 MG in NS 250 ML IV 250 ML IV SCH (09:04)
[2021-05-23] MEDS: GLUCOTROL PO SCH (09:04)
[2021-05-23] MEDS: CARDIZEM CD 240 MG 24-HR PO SCH (09:04)
[2021-05-23] MEDS: PROTONIX INJ 40 MG VIAL IVP SCH (09:04)
[2021-05-23] MEDS: GLUCOPHAGE XR 24-HR PO SCH (09:04)
[2021-05-23] MEDS: TOPROL XL PO SCH (09:16)
[2021-05-23] MEDS: COZAAR PO SCH (09:16)
[2021-05-23] MEDS: HEPARIN SODIUM IN D5W 25,000 UNITS/500 ML BAG IV PRN (09:24)
[2021-05-23] MEDS: MORPHINE SULFATE INJ 2 MG INJ IVP PRN ×3 (09:25→23:56)
[2021-05-23] MEDS: BROVANA IN SCH ×2 (09:35→20:45)
[2021-05-23] MEDS: PULMICORT NEB TX 0.5 MG NEB SCH ×2 (09:35→20:45)
[2021-05-23] MEDS ORDERED: ROBITUSSIN DM PO PRN (11:30)
[2021-05-23] MEDS ORDERED: BUTT CREAM (COMPOUND) TOP PRN (12:09)
[2021-05-23] MEDS: SNACK - Diabetic Appropriate PO SCH (20:06)
[2021-05-24] MEDS: NS 1,000 ML IV 1,000 ML IV SCH (05:17)
[2021-05-24] MEDS: HEPARIN SODIUM IN D5W 25,000 UNITS/500 ML BAG IV PRN (05:18)
[2021-05-24] MEDS: MORPHINE SULFATE INJ 2 MG INJ IVP PRN (06:00)
[2021-05-24 06:34] LABS: BASOPHILS % (AUTO) 0 % (0.2-1.0); EOSINOPHILS # (AUTO) 0.1 x10^3/uL (0.0-0.2); EOSINOPHILS % (AUTO) 0.2 % (0.9-2.9); HEMATOCRIT 22.6 % (42.0-54.0); HEMOGLOBIN 7.4 g/dL (13.5-18.0); LYMPHOCYTES # (AUTO) 1.1 X10^3/uL (1.3-2.9); LYMPHOCYTES % (AUTO) 4.4 % (21.0-51.0); MEAN CORPUSCULAR HEMOGLOBIN 28.3 pg (27.0-34.0); MEAN CORPUSCULAR HGB CONC 32.7 g/dL (33.0-35.0); MEAN CORPUSCULAR VOLUME 86.6 fL (80.0-100.0); MEAN PLATELET VOLUME 7.5 fL (7.4-11.0); MONOCYTES # (AUTO) 0.6 x10^3/uL (0.3-0.8); MONOCYTES % (AUTO) 2.4 % (0.0-13.0); NEUTROPHILS # (AUTO) 22.5 x10^3/uL (2.2-4.8); RED BLOOD COUNT 2.61 X10^6/uL (4.7-6.0); RED CELL DISTRIBUTION WIDTH 15.7 % (11.6-16.5); WHITE BLOOD COUNT 24.2 X10^3/uL (3.6-10.0)
[2021-05-24 06:46] LABS: ALANINE AMINOTRANSFERASE 17 Units/L (12-78); ALBUMIN 1.7 g/dL (3.4-5.0); ALKALINE PHOSPHATASE 340 Units/L (46-116); ASPARTATE AMINO TRANSFERASE 28 Units/L (15-37); BLOOD UREA NITROGEN 28 mg/dL (7-18); CALCIUM 8.1 mg/dL (8.5-10.1); CHLORIDE 110 mmol/L (98-107); COR CA(FOR HYPOALB) 9.9 mg/dL (8.5-10.1); COR NA(FOR HYPERGLY) 144 mmol/L (136-145); CREATININE 0.84 mg/dL (0.70-1.30); SODIUM 142 mmol/L (136-145); TOTAL PROTEIN 6.1 g/dL (6.4-8.2); eGFR NON BLACK RACES > 60 (>60)
[2021-05-24 07:12] LABS: PLATELET MORPHOLOGY COMMENT NORMAL (NORMAL)
[2021-05-24] MEDS: BROVANA IN SCH (08:49)
[2021-05-24] MEDS: PULMICORT NEB TX 0.5 MG NEB SCH (08:49)
[2021-05-24] MEDS: ZITHROMAX INJ 500 MG VIAL 500 MG in NS 250 ML IV 250 ML IV SCH (09:24)
[2021-05-24] MEDS: LEVAQUIN PREMIX IV 500 MG 500 MG/100 ML BAG IV SCH (09:24)
[2021-05-24] MEDS: PROTONIX INJ 40 MG VIAL IVP SCH (09:25)
[2021-05-24] MEDS: GLUCOPHAGE XR 24-HR PO SCH (09:25)
[2021-05-24] MEDS: TOPROL XL PO SCH (09:25)
[2021-05-24] MEDS: CARDIZEM CD 240 MG 24-HR PO SCH (09:26)
[2021-05-24] MEDS: GLUCOTROL PO SCH (09:26)
[2021-05-24] MEDS: COZAAR PO SCH (09:27)
[2021-05-24] MEDS ORDERED: PERCOCET TAB 5/325 MG PO PRN (09:38)
[2021-05-24 11:45] VITALS: BP 111/66
== END 2021-05-24 11:20 | disposition hospice, home (50) | DRG 175 ==
LOC: ER 11:13 → MED/SURG 11:13 → OBSVTOIN 17:52 → MED/SURG 22:00
PROVIDERS: ADMIT Internal Medicine; ATTEND Internal Medicine